=== PATIENT | male | born 2000 | race African-American/Black ===

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

== ENCOUNTER → 2020-11-17 | Outpatient (CLI) | payer OTHER | END | disposition home or self-care (01) | LOC: LAB 09:51 | PROVIDERS: ATTEND Preventive Medicine Preventive Medicine/Occupational Environmental Medicine | DX: Z02.1 Encounter for pre-employment examination (principal) | CPT/HCPCS: 86735; 86762; 86765; 86787 ==

== ENCOUNTER 2021-02-06 11:50 | Emergency (ER) | payer BC, MEDICAID ==
[~2021-02-06] VITALS: Ht 190.5 cm; Wt 115.2 kg
[2021-02-06 13:07] VITALS: BP 124/76
[2021-02-06] MEDS ORDERED: IBUPROFEN 800 MG TAB PO ONE (13:45)
== END 2021-02-06 14:50 | disposition home or self-care (01) ==
LOC: ER 11:50
DX: S93.401A Sprain of unspecified ligament of right ankle, initial encounter (principal); X58.XXXA Exposure to other specified factors, initial encounter; Y93.89 Activity, other specified; Y92.89 Other specified places as the place of occurrence of the external cause; Y99.8 Other external cause status
CPT/HCPCS: 73630

== ENCOUNTER 2022-10-01 21:02 | Emergency (ER) | payer BC, MEDICAID ==
[~2022-10-01] VITALS: Ht 190.5 cm; Wt 109.0 kg
[2022-10-01 22:13] VITALS: BP 131/71
[2022-10-02] MEDS ORDERED: IBUP800T27 PO (00:26)
== END 2022-10-02 01:00 | disposition home or self-care (01) ==
LOC: ER 21:02
DX: S93.401A Sprain of unspecified ligament of right ankle, initial encounter (principal); F12.10 Cannabis abuse, uncomplicated; X50.1XXA Overexertion from prolonged static or awkward postures, initial encounter; Y93.89 Activity, other specified; Y92.89 Other specified places as the place of occurrence of the external cause; Y99.8 Other external cause status
CPT/HCPCS: 73610